=== PATIENT | female | born 1995 | race Caucasian/White ===

== ENCOUNTER 2024-08-29 18:21 | Emergency (ER) | payer OTHER, SELFPAY ==
[2024-08-29 18:21] VITALS: BMI 19.2
[2024-08-29 18:27] VITALS: BP 144/80
[2024-08-29] MEDS: AUGMENTIN 875 MG/125 MG 1 TABLET PO (19:40)
[2024-08-29] MEDS: HyperRAB 953 UNIT IM (19:41)
[2024-08-29] MEDS: HyperRAB IM (19:41)
[2024-08-29] MEDS: RABAVERT RABIES VACC W-DILUENT 2.5 UNIT IM (19:42)
--- NOTE | 2024-08-29 20:13 | ED.SKININJ ---
HPI-Injury
General
Chief Complaint: Bite
Source: patient and spouse
Exam Limitations: none
Time Seen by Provider: 08/29/24 18:49
Nursing documentation reviewed up to this point in time: agreed with
History of Present Illness-Injury
Is this injury a work related problem?: No
Is pt an associate of [facility]?: No
Initial Injury comments:
29-year-old female presenting to the emergency department today with concerns of a dog bite to the right calf. She claims that she was at an unknown person's home was knocking on the door dog came around and bit her on the cat. She was unable to
get any additional information from the process owner or as there was a confrontation. She is unsure of the vaccination status of the dog and is not sure when she will be able to get that information. Her last tetanus shot was 5 years ago
Review of Systems
Review of Systems
Allergies reviewed?: Yes
All Other Systems: ROS reviewed and negative except as documented in HPI and ROS
Phy Exam
Physical Exam
Physical Exam:
GENERAL: Alert , in no apparent distress
EYE: pupils equal and reactive
NECK: Supple, no significant adenopathy.
ENT: o/p clr, mmm.
CARDIAC: Regular rate and rhythm .
LUNGS: Clear breath sounds bilaterally, no acute respiratory distress, no wheezes/rales/rhonchi
ABDOMEN: Soft, without focal tenderness, no r/g, no cvat
NEUROLOGICAL: Alert and oriented, no focal neuro deficits
SKIN: Puncture wound to the right calf subcentimeter in size no foreign bodies no purulent drainage warm and dry, skin intact.
MUSCULOSKELETAL: No edema, well perfused.
PSYCH: Normal and appropriate interaction.
Course
Orders/Labs/Results
Orders:
Orders
08/29/24 19:09
Amoxicillin 875 mg/Clav 125 mg [Augmentin 875 mg/125 mg] 1 tablet PO NOW STA
Rabies Immune Globulin/Pf [HyperRAB] 953 unit IM NOW STA
08/29/24 19:28
Rabies Immune Globulin/Pf [HyperRAB] 953 unit IM NOW STA
08/29/24 19:30
Rabies Vaccine (Pcec)/Pf [Rabavert Rabies Vacc W-Diluent] 2.5 unit IM .ONCE ONE
08/29/24 20:14
Tetanus/Diphth/Acelpertussis [Adacel] 0.5 ml IM .ONCE ONE
Vital Signs
Initial and Last Documented VS:
Initial Vital Signs
Temp Pulse Resp BP Pulse Ox
98 F 60 18 144/80 100
08/29/24 18:27 08/29/24 18:27 08/29/24 18:27 08/29/24 18:27 08/29/24 18:27
Last Documented Vital Signs
Temp Pulse Resp BP Pulse Ox
98 F 60 18 144/80 100
08/29/24 18:27 08/29/24 18:27 08/29/24 18:27 08/29/24 18:27 08/29/24 18:27
MDM/Problems Addressed
MDM/Problems Addressed:
29-year-old female presenting to the emergency department today with concerns of a dog bite to the right calf. Small puncture wound no redness or warmth mild pain to palpation surrounding the area. No pain to the scott. Normal distal neurovascular
examination. Patient started on rabies prophylaxis as she is unsure of the rabies status of the dog given updated tetanus shot and also started on antibiotics. Return precautions given.
*Critical Care Note
Total Time (30-74mins, 75-104mins- exclusive of procedures): Not Applicable
ED Attending Note
-
Portions of this chart may have been created with voice recognition software.� Occasional wrong word or��sound alike� substitutions may have occurred due to the inherent limitations of voice recognition software.
Discharge Plan
Departure
Patient Disposition: Home (Routine Discharge)
Date of Disposition: 08/29/24
Time of Disposition: 20:13
Patient with high blood pressure during this ER visit?: No
Condition: Good
Covid-19: Not Applicable
Discharge Problem:
Dog bite of right lower leg
Instructions: Animal Bites (DC), Rabies
Prescriptions:
New
RabAvert (PF) 2.5 unit Suspension For Reconstitution
1 ml IM . DIRECTED Qty: 3 0RF
Rx Instructions:
See Rabies Vaccine Post Exposure Prophylaxis Instruction Sheet for Dosing Instructions
amoxicillin-pot clavulanate 875-125 mg tablet
1 tab PO BID 5 Days Qty: 10 0RF
Referrals:
NONE,* [Family Provider] -
Stand Alone Forms: Rabies Vaccine Post Exp Dosing
Activity Restrictions/Additional Instructions:
You came to the emergency department today after a dog bite to the right calf. Please keep the area clean covered and take Augmentin twice daily for the next 5 days. Please also follow-up for subsequent rabies vaccinations at the infusion center.
Return to the emergency department for any worsening, new or concerning symptoms.
Interventions
Interventions:
*Risk Screen - Suicide Last Done: 08/29/24 19:10
*General Assessment Last Done: 08/29/24 19:10
*Neglect/Abuse Screening Last Done: 08/29/24 19:10
ED- Fall Risk Assessment Last Done: 08/29/24 19:10
*Nursing Disposition Last Done: 08/29/24 20:30
ED-Skin Assessment Last Done: 08/29/24 19:10
Discharge Date and Time
Discharge Date/Time: 08/29/24 20:31
Print Language: PORTUGUESE
[2024-08-29] MEDS: ADACEL 0.5 ML IM (20:26)
== END 2024-08-29 20:31 | disposition home or self-care (01) ==
LOC: EMR 18:21
PROVIDERS: EMERGENCY PHYSICIAN Emergency Medicine
DX: S81.851A Open bite, right lower leg, initial encounter (principal); W54.0XXA Bitten by dog, initial encounter; Z23 Encounter for immunization; Z29.14 Encounter for prophylactic rabies immune globulin
CPT/HCPCS: 99284; 90471; 96372; 90375; 90675; 90715